=== PATIENT | male | born 1935 | race Caucasian/White ===

== ENCOUNTER 2019-02-27 06:56 | Observation (INO) | payer MEDICARE, OTHER ==
[~2019-02-27] VITALS: Ht 188 cm; Wt 93.1 kg
[~2019-02-27 06:56] MED LIST: ALFU10 PO; CEPH500 PO; EMERGEN-C 500500 MG PO; HYDACE5 PO; Verotin-Gr Cap1 EACH PO; XARELTO15 MG PO
--- NOTE | 2019-02-27 12:30 | NUR ---
ARRIVAL NOTE PT ARRIVES TO UNIT 1227 FROM CLOTHING SALES ASSISTANT. PT WAS CATHERIZED IN POPLITEAL AND POST-TIB VEINS. TPA RUNNING AT 0.5MG/HR THROUGH SHEATHES IN BOTH SITES. HEPARIN RUNNING AT 5.81 UNITS/KG/HR. BOTH SITES ARE C/D/I, NO OOZING, BLEEDING OR HEMATOMA FORMATION. PT ORIENTED TO ROOM, BED IN LOW, LOCKED POSITION, PT REPORTS NO PAIN AT THIS TIME. PT HAS DOPPABLE PULSES IN LEFT EXTEMETY.
--- NOTE | 2019-02-27 18:30 | NUR ---
SHIFT SUMMARY PT IS ALERT AND ORIENTED X 4, AND IS CURRENTLY WATCHING TV, PAINFREE. PT IS WAITING TO RETURN TO BEHAVIORAL INTERVENTIONIST TO FINISH PROCEDURE. PT IS NO LONGER RECEIVING TPA IN POPLITEAL/POST-TIB CATH SITES. PT IS CURRENTLY RECEIVING HEPARIN 5.81UNITS/KG/HR. BOTH CATH SITES ARE C/D/I, NOT OOZING, BLEEDING AND FREE FROM HEMATOMA FORMATION. PT REPORTS NO CHEST PAIN, OR N/V. PT REPORTS NO NEEDS AT THIS TIME.
--- NOTE | 2019-02-27 19:15 | NUR ---
ASSUMED PT CARE PT TRANSFERRED BY [facility] STAFF TO SEA CAPTAIN
--- NOTE | 2019-02-27 20:38 | NUR ---
RETURN FROM SULFIDE HEAD OPERATOR 2010 RIVETER PNEUMATIC TO JULIA ALBERT IN ROOM. PER RIVETER PNEUMATIC SHE HAD TO HOLD PRESSURE TO POPLITEAL SITE ON LEFT SIDE FOR AN ADDITIONAL 5 MINUTES D/T OOZING NOTED ON BECKY DRESSING. AREA WAS MARKED AND WILL CONTINUE TO ASSESS FOR BLEEDING. LEFT TIBIAL SITE REMAINS CDI; SITE IS SOFT, NONTENDER, NO OOZING OR HEMATOMA NOTED.
--- NOTE | 2019-02-27 22:22 | NUR ---
OOZING NOTED TO OUTSIDE OF MARKED LINES TO LEFT POPLITEAL SITE. APPLIED PRESSURE FOR AN ADDITIONAL 5 MINUTES. CHANGED DRESSING AND APPLIED NEW BECKY WITH TEGADERM. NO FURTHER OOZING NOTED. NO SWELLING, HEMATOMA, OR TENDERNESS AROUND SITE. PT ONLY C/O TENDERNESS WHILE HOLDING PRESSURE TO SITE.
--- NOTE | 2019-02-27 23:00 | NUR ---
OBSERVED ARTIFACT ON HEART MONITOR; WHILE GOING TO CHECK ON PT HE WAS TRYING TO GET OUT OF BED. WHEN ASKED WHAT HE WAS DOING PT STATED HE NEEDED TO GO TO THE BATHROOM. PT HAS HAD SEVERAL REMINDERS REGARDING PROCEDURE, KEEPING LEG STRAIGHT, NOT GETTING UP UNTIL 8HRS AFTER SHEATH PULL, LYING FLAT IN BED, ETC... ATTEMPTED TO REORIENT PT; HOWEVER, HE WAS VERY CONFUSED TO WHERE HE WAS AND FORGETFUL OF WHY HE WAS HERE. PT ARGUED WITH STAFF THAT HE NEEDED TO GET OUT OF HERE AND GO TO THE BATHROOM. PT ENCOURAGED REPEATEDLY TO SIT BACK DOWN IN BED. PT ADAMANT AND REFUSED. COMPROMISED WITH BSC AND PT STILL REFUSED TO USE IT STATING HE NEEDED TO "GET OUT OF HERE AND USE THE RESTROOM." PT FINALLY ABLE TO BE TALKED DOWN AND INTO USING THE BSC WITH PRIVACY. ONCE ON THE COMMODE PT WAS ABLE TO BE REORIENTED TO WHY HE WAS HERE. PT WAS ABLE TO IDENTIFY HIMSELF, CITY, AND YEAR, BUT WASN'T ABLE TO RECALL RECENT EVENTS. PER REPORT THIS WAS ALSO NOTED EARLIER IN THE DAY WHEN PT WAS ASKING THE SAME QUESTIONS SEVERAL TIMES. ASSISTED BACK TO BED AFTER USE OF COMMODE AND BED ALARM SET.
--- NOTE | 2019-02-28 | NUR ---
PT AGAIN ATTEMPTED TO GET OUT OF BED AGAIN; VERY CONFUSED AND FORGETFUL OF PLACE AND SITUATION; REORIENTED. PT THOUGHT IT WAS NOON AND THAT HE WAS "GOING HOME". PT MANAGED TO PULL OUT HIS IV; RESTARTED 20G TO LEFT FOREARM. ASSESSED BOTH POPLITEAL AND TIBIAL SITES; NO OOZING, HEMATOMA, TENDERNESS, OR SWELLING NOTED TO SITES. BED ALARM ON.
--- NOTE | 2019-02-28 06:17 | NUR ---
END OF SHIFT SUMMARY PT HAS REMAINED ALERT AND ABLE TO MAKE NEEDS KNOWN. BED ALARM ON FOR SAFETY ALL NIGHT D/T PT BEING IMPULSIVE TO USE THE RESTROOM AND NOT CALLING FOR HELP. PT HAS BEEN NOTED TO BE CONFUSED AND FORGETFUL MOST OF SHIFT. ABLE TO STATE WHAT CITY AND YEAR; BUT FORGETFUL OF SITUATION AND PLACE/SURROUNDING. LEFT POPLITEAL SITE HAD THE TWO EPISODES OF OOZING WITH MANUAL PRESSURE BEING HELD FOR AN ADDITONAL FIVE MINUTES A PIECE WITH NO ADDITIONAL OOZING OR DRAINAGE NOTED. LEFT TIBIAL SITE HAS REMAINED CDI WITH NO OOZING, HEMATOMA, OR SWELLING. BOTH SITES ARE NON-TENDER. PEDAL AND TIBIAL PULSES ARE WEAKER ON LEFT THAN RIGHT, BUT PALPABLE. DR. HILL GAVE VERBAL ORDERS TO MOTOR VEHICLE REPRESENTATIVE REGARDING DISCHARGE TODAY; HOWEVER, NO PAPERWORK WAS GIVEN REGARDING FOLLOW UP APPTS, ETC... ONE ORDER WAS HAND WRITTEN FOR XARELTO UPON DISCHARGE, BUT NO OTHER HOME MEDICATIONS. WILL PASS ON TO DAY SHIFT TO CLARIFY THIS WITH DR. HILL PRIOR TO PT GOING HOME.
--- NOTE | 2019-02-28 08:25 | NUR ---
CALL PLACED TO DR. HILL TO CLARIFY DISCHARGE ORDERS.
--- NOTE | 2019-02-28 08:25 | NUR ---
INITIAL ASSESSMENT PATIENT IS ALERT AND ORIENTED BUT APPEARS FORGETFUL AT TIMES. PATIENT IS AFEBRILE. PATIENT STATES THAT HIS LEFT LEG ACHES, BUT THAT IT IS MANAGEABLE AT THIS TIME. PATIENT LUNG SOUNDS ARE CLEAR T/O BUT DIMINISHED IN THE LOWER LOBES. PATIENT IS SATTING 90% OR GREATER ON RA. NSR WITH OCCASIONAL PVCS. HR IN THE 60S-70S. BP IS STABLE. PATIENT HAS TYMPANIC BOWEL SOUNDS X4 QUADRANTS. ABDOMEN IS NONTENDER AND SOFT TO PALPATION WITH NO DISTENTION. PATIENT IS UTILIZING THE BEDSIDE URINAL AND IS VOIDING WELL. L TIBIAL AND L POPLITEAL CHIEF INVESTMENT OFFICER ACCESS SITES HAVE CLEAN DRESSINGS, ARE SOFT ON PALPATION, WITH NO SIGNS OF BLEEDING, BRUISING, OR HEMATOMA NOTED AT THIS TIME. PATIENT HAS HEPARIN INFUSING AT 15 U/KG/HR. BED LOW, CALL LIGHT IN REACH. WILL CONTINUE TO MONITOR.
--- NOTE | 2019-02-28 08:44 | NUR ---
SPOKE WITH DR. HILL TO CLARIFY ORDERS. STATED TO DC HEPARIN DRIP. PATIENT HAS PRESCRIPTION FOR XARELTO UPON DISCHARGE. STATED THAT THERE ARE NO ACTIVITY GUIDELINES. STATED TO INFORM PATIENT NOT TO GET POPLITEAL SITE WET FOR 2 DAYS AND TO HAVE A FOLLOW UP APPOINTMENT IN 1 MONTH.
[2019-02-28] MEDS ORDERED: XARELTO15 MG PO (10:30)
--- NOTE | 2019-02-28 10:59 | NUR ---
PATIENT DISCHARGED IN CARE OF FRIEND ROBERTH ALEMAN, WHO IS DRIVING PATIENT HOME SINCE DOES NOT DRIVE. PATIENT REMAINED ALERT AND ORIENTED, AFEBRILE. VITAL SIGNS STABLE. LEFT POPLITEAL AND TIBIAL SITES REMAINED WNL- NO BLEEDING, BRUISING, OR HEMATOMA NOTED. HEPARIN DC'D THIS AM. PATIENT GIVEN PRESCRIPTION FOR XARELTO. PATIENT STATED THAT HE UNDERSTOOD DISCHARGE INSTRUCTIONS. [facility] TO CALL PATIENT ON SUNDAY TO MAKE FOLLOW UP APPOINTMENT.
== END 2019-02-28 11:00 | disposition home or self-care (01) ==
LOC: MHTC 06:56 → ICUW 10:26 → MHTC 12:03 → ICUW 12:03
PROVIDERS: ADMIT Radiology Diagnostic Radiology
DX: I82.432 Acute embolism and thrombosis of left popliteal vein (principal); I82.412 Acute embolism and thrombosis of left femoral vein; I82.442 Acute embolism and thrombosis of left tibial vein
CPT/HCPCS: 36011; 36415; 37187; 37212; 37238; 75820; 76937; 85384; 99152; 99153; A9270-GY; C1724; C1725; C1751; C1769; C1876; C1887; C1894; J1644; J2250; J3010; J7030; J7040; Q9967

== ENCOUNTER → 2021-08-30 | Outpatient (CLI) | payer MEDICARE, OTHER ==
[2021-08-30 19:08] LABS: Microalb/Creat Ratio UR, Rand 5.808 mg/g (0.000-30.000); Microalbumin, Random Urine 19.4 mg/L (0.000-20.000)
== END | disposition home or self-care (01) ==
LOC: LAB 15:57 → LAB SHORT 15:57
PROVIDERS: Internal Medicine
DX: N18.30 Chronic kidney disease, stage 3 unspecified (principal)
CPT/HCPCS: 82043; 82570